=== PATIENT | male | born 1955 | race Caucasian/White ===

== ENCOUNTER → 2021-06-08 | Outpatient (CLI) | payer OTHER ==
[~2021-06-08] MED LIST: ACET325 PO; ATOR80 PO; Aspirin EC325 MG PO; DOCU100 PO; HYDACE5 PO; HYDCHL25 PO; HYDR1TAB94 PO; LAVAP17G PO; LISI20 PO; Loperamide2 MG PO; NAPR500 PO; PROM25 PO; Synthroid/Lev0.05 MG PO; Zofran Odt4 MG PO; Zofran Odt4 MG SL
[2021-06-08 09:47] LABS: Source, Urine Clean Catch
[2021-06-08 10:06] LABS: Bacteria Not Seen /hpf; Red Blood Cells, Urine Not Seen /hpf (0-2); Squamous Epithelial Cells Rare /hpf (Few)
== END | disposition home or self-care (01) ==
LOC: LAB SHORT 09:46
PROVIDERS: Family Medicine
DX: R10.9 Unspecified abdominal pain (principal)
CPT/HCPCS: 81015

== ENCOUNTER → 2022-10-15 | Outpatient (CLI) | payer OTHER | END | disposition home or self-care (01) | LOC: LAB 17:45 → LAB SHORT 17:45 | DX: L03.211 Cellulitis of face (principal) | CPT/HCPCS: 87070; 87075; 87077; 87147; 87186; 87205 ==

== ENCOUNTER 2023-05-16 06:19 | Day surgery (SDC) | payer OTHER ==
[2023-05-16] VITALS (13 sets, daily range): BP systolic 82–123; BP diastolic 63–86
[~2023-05-16] VITALS: Ht 172.7 cm; Wt 83.0 kg
[~2023-05-16 06:19] MED LIST changes: +AMIODARONE HCL400 M2 PO; +CLOP75 PO; +ESCI10 PO; +METO25ER PO; +VITAMIN B COMPLEX; +VITAMIN D3; +Vitamin B-12100 MCG PO; +Vitamin C100 M1 PO
--- NOTE | 2023-05-16 08:15 | NUR ---
PT BACK TO RECOVERY ROOM VIA BED AFTER PROCEDURE. AWAKE AND ALERT, DENIES ANY PAIN OR DISCOMFORT. VSS, CALL LIGHT IN REACH.
--- NOTE | 2023-05-16 08:16 | NUR ---
RIGHT RADIAL SITE WITH TR BAND IN PLACE, NO BLEEDING OR SWELLING NOTED AT SITE.
--- NOTE | 2023-05-16 10:30 | NUR ---
ALL AIR RELEASED FROM TR BAND. NO BLEEDING, OOZING OR HEMATOMA NOTED. PT DENIES ANY CP. VSS.
--- NOTE | 2023-05-16 11:15 | NUR ---
PT WITH RRAD ACCESS. TR BAND REMOVED AND CLEANED. NO BLEEDING, OOZING OR HEMATOMA NOTED. WHITE BOARD PLACED BACK ON ARM AND ARM PLACED IN A SLING. PT STATES HIS UNDERSTANDING OF SITE CARE AND DC INSTRUCTIONS AND DENIES ANY QUESTIONS OR CONCERNS UPON DC. VSS. IV DCD WITH CATH INTACT. PT TAKEN TO EXIT VIA WHEELCHAIR WHERE SISTER WAS WAITING WITH VEHICLE. SISTER INFORMED OF DC INSTRUCTIONS WELL AND ALSO DENIES ANY QUESTIONS OR CONCERNS.
== END 2023-05-16 11:15 | disposition home or self-care (01) ==
LOC: MHTC 06:19
DX: I25.119 Atherosclerotic heart disease of native coronary artery with unspecified angina pectoris (principal); I47.20 Ventricular tachycardia, unspecified; I10 Essential (primary) hypertension; E78.5 Hyperlipidemia, unspecified; J44.9 Chronic obstructive pulmonary disease, unspecified; Z88.5 Allergy status to narcotic agent; Z79.899 Other long term (current) drug therapy
CPT/HCPCS: 76937; 93454; 99152; A9270; C1769; C1887; C1894; J1644; J2250; J3010; J7030; J7050; Q9967

== ENCOUNTER → 2023-11-07 | Outpatient (CLI) | payer OTHER ==
[2023-11-07 15:06] LABS: Stool Occult Bld Immuno 1 Negative (NEGATIVE)
== END ==
LOC: LAB SHORT 09:39 → LAB 09:39
PROVIDERS: Family Medicine
DX: R61 Generalized hyperhidrosis (principal)
CPT/HCPCS: 82274

== ENCOUNTER → 2025-01-28 | Outpatient (CLI) | payer OTHER ==
[2025-01-28 15:38] LABS: Adenovirus F 40/41 Not Detected (NOT DETECT); Astrovirus Not Detected (NOT DETECT); Campylobacter Sp Not Detected (NOT DETECT); Cryptosporidium Not Detected (NOT DETECT); Cyclospora Cayetanensis Not Detected (NOT DETECT); E. Coli O157 Not Detected (NOT DETECT); Entamoeba Histolytica Not Detected (NOT DETECT); Enteroaggregative E. coli-EAEC Not Detected (NOT DETECT); Enteropathogenic E. coli-EPEC Not Detected (NOT DETECT); Enterotoxigenic E. coli-ETEC Not Detected (NOT DETECT); Giardia Lamblia Not Detected (NOT DETECT); Norovirus GI/GII Not Detected (NOT DETECT); Plesiomonas Shigelloides Not Detected (NOT DETECT); Rotavirus A Not Detected (NOT DETECT); Salmonella Sp Not Detected (NOT DETECT); Sapovirus Not Detected (NOT DETECT); Shiga Toxin-prod E. coli-STEC Not Detected (NOT DETECT); Shigella/Enteroin E. coli-EIEC Not Detected (NOT DETECT); Vibrio Cholerae Not Detected (NOT DETECT); Vibrio Sp Not Detected (NOT DETECT); Yersinia Enterocolitica Not Detected (NOT DETECT)
== END ==
LOC: LAB 10:35 → LAB SHORT 10:35
PROVIDERS: Family Medicine
DX: R19.7 Diarrhea, unspecified (principal)
CPT/HCPCS: 87507